=== PATIENT | male | born 1975 | race African-American/Black ===

== ENCOUNTER 2022-09-05 23:27 | Inpatient (IN) | payer OTHER ==
[2022-09-06 00:24] LABS: BASO % 1.8 % (0-2.0); HEMATOCRIT 38.9 % (35.4-49); HEMOGLOBIN 13.6 GM/dL (11.7-16.9); LYMPH % 23.8 % (8-40); MCH 29.8 pg (25.7-33.7); MCHC 34.8 g/dl (32.0-35.9); MEAN CELL VOLUME 85.4 fl (80-96); NEUT % 58.4 % (42.8-82.8); RBC 4.56 M/mm3 (4.00-5.60); RDW 15.3 % (11.9-15.9); WHITE BLOOD COUNT 12.8 K/mm3 (4.0-10.0)
[2022-09-06 01:17] LABS: ALBUMIN 4.3 g/dl (3.4-5.0); BILIRUBIN,TOTAL 2.8 mg/dL (0.2-1); BLOOD UREA NITROGEN 11.2 mg/dL (7-18); CALCIUM 9.5 mg/dL (8.5-10.1); CREATININE 0.7 mg/dL (0.55-1.3); N-TERMINAL BNP 67.1 pg/ml (5-125); POTASSIUM 4.9 mmol/L (3.5-5.1); TOT PROT 9.1 g/dl (6.4-8.2)
[2022-09-06 02:45] LABS: INR 1.22 (0.83-1.09); PROTHROMBIN TIME (PATIENT) 14.1 SEC (9.7-13.0)
[2022-09-06 02:47] LABS: ACTIVATED PTT 32.6 SECONDS (25.2-36.5)
[2022-09-06] MEDS ORDERED: AMOX TR/POT CLAV 875MG/125MG TABLETS (FP) PO ONE (03:04)
[2022-09-06] MEDS ORDERED: PIPERACILLIN/TAZOB 4.5 GM 4.5 GM in DEXTROSE 5%-WATER 100 ML IVPB ONE (03:35)
[2022-09-06] MEDS ORDERED: VANCOMYCIN 1 GM in D5W (PRE-DOCKED) 1,000 MG/250 ML (RESTRICTED TO ID ONLY IVPB ONE (03:35)
[2022-09-06] MEDS ORDERED: VANCOMYCIN/WATER FOR INJ (PEG) 1,000 MG/200 ML BAG IVPB ONE (04:58)
[2022-09-06 05:29] LABS: PLATELET COUNT 482.6 10^3/uL (134-434)
[2022-09-06] MEDS ORDERED: LORazepam 1 MG TABLET PO PRN (05:41)
[2022-09-06] MEDS ORDERED: ACETAMINOPHEN 325 MG TABLET (FP) PO PRN (05:42)
[2022-09-06] MEDS ORDERED: DEXTROSE 5%-NORMAL SALINE 1,000 ML IV SCH (05:45)
[2022-09-06] MEDS ORDERED: PIPERACILLIN/TAZOB 4.5 GM 4.5 GM/100 ML BAG IVPB ONE (06:19)
[2022-09-06 08:19] LABS: BASO % 1.8 % (0-2.0); EOS % 1.7 % (0-4.5); HEMATOCRIT 35.5 % (35.4-49); HEMOGLOBIN 12.8 GM/dL (11.7-16.9); LYMPH % 24.5 % (8-40); MCH 30.3 pg (25.7-33.7); MCHC 36.2 g/dl (32.0-35.9); MEAN CELL VOLUME 83.7 fl (80-96); MEAN PLT VOLUME 7.8 fl (7.5-11.1); PLATELET COUNT 485 10^3/uL (134-434); RBC 4.24 M/mm3 (4.00-5.60); RDW 15.4 % (11.9-15.9); WHITE BLOOD COUNT 8.2 K/mm3 (4.0-10.0)
[2022-09-06 08:37] LABS: POTASSIUM 4.3 mmol/L (3.5-5.1)
[2022-09-06 08:39] LABS: CALCIUM 9.9 mg/dL (8.5-10.1)
[2022-09-06 08:40] LABS: ALBUMIN 3.9 g/dl (3.4-5.0); BLOOD UREA NITROGEN 14.4 mg/dL (7-18); MAGNESIUM 2.1 mg/dL (1.8-2.4)
[2022-09-06 08:42] LABS: PHOSPHOROUS 4.5 mg/dL (2.5-4.9)
[2022-09-06 08:43] LABS: CREATININE 0.8 mg/dL (0.55-1.3)
[2022-09-06 08:44] LABS: BILIRUBIN,TOTAL 2.4 mg/dL (0.2-1); TOT PROT 8.3 g/dl (6.4-8.2)
[2022-09-06] MEDS ORDERED: PIPERACILLIN/TAZOB 4.5 GM 4.5 GM in DEXTROSE 5%-WATER 100 ML IVPB SCH (09:00)
[2022-09-06] MEDS ORDERED: VANCOMYCIN 1 GM in D5W (PRE-DOCKED) 1,000 MG/250 ML (RESTRICTED TO ID ONLY IVPB SCH (10:00)
[2022-09-06] MEDS ORDERED: VANCOMYCIN 1 GM/200 ML PREMIX BAG (RESTRICTED TO ID ONLY) IVPB SCH (10:00)
[2022-09-06] MEDS ORDERED: ENOXAPARIN NA (PORCINE) 40 MG/0.4 ML DISP.SYRIN SQ SCH (10:00)
[2022-09-06] MEDS: NICOTINE 14 MG/24 HOURS TOPICAL PATCH TD SCH ×2 (11:40→11:50)
[2022-09-06] MEDS: THIAMINE HCL 100 MG TABLET (FP) PO SCH (11:40)
[2022-09-06] MEDS: FOLIC ACID 1 MG TABLET (FP) PO SCH (11:40)
[2022-09-06] MEDS ORDERED: ALBUTEROL SO4 HFA INHALER IH PRN (12:28)
[2022-09-06 13:48] LABS: N-TERMINAL BNP 44.9 pg/ml (5-125)
[2022-09-06] MEDS: DOXYCYCLINE HYCLATE 100 MG CAPSULE PO SCH (15:49)
[2022-09-06] MEDS: CEFTRIAXONE 1 GM in DEXTROSE 5%-WATER - 50 ML IVPB SCH (15:51)
[2022-09-06] MEDS: APIXABAN 5 MG TABLET PO SCH ×2 (16:59→22:24)
[2022-09-07] MEDS: NICOTINE 14 MG/24 HOURS TOPICAL PATCH TD SCH (09:30)
[2022-09-07] MEDS: THIAMINE HCL 100 MG TABLET (FP) PO SCH (09:30)
[2022-09-07] MEDS: APIXABAN 5 MG TABLET PO SCH ×2 (09:30→21:18)
[2022-09-07] MEDS: DOXYCYCLINE HYCLATE 100 MG CAPSULE PO SCH (09:30)
[2022-09-07] MEDS: FOLIC ACID 1 MG TABLET (FP) PO SCH (09:30)
[2022-09-07] MEDS: CEFTRIAXONE 1 GM in DEXTROSE 5%-WATER - 50 ML IVPB SCH (09:30)
[2022-09-07 10:33] LABS: POTASSIUM 4.6 mmol/L (3.5-5.1)
[2022-09-07 10:37] LABS: CALCIUM 9.9 mg/dL (8.5-10.1); EOS % 2.2 % (0-4.5); HEMATOCRIT 34.3 % (35.4-49); HEMOGLOBIN 12.4 GM/dL (11.7-16.9); LYMPH % 23.8 % (8-40); MCH 30.5 pg (25.7-33.7); MCHC 36.2 g/dl (32.0-35.9); MEAN CELL VOLUME 84.3 fl (80-96); MONO % 11.6 % (3.8-10.2); NEUT % 61.4 % (42.8-82.8); PLATELET COUNT 484 10^3/uL (134-434); RBC 4.07 M/mm3 (4.00-5.60); RDW 15.3 % (11.9-15.9); WHITE BLOOD COUNT 6.1 K/mm3 (4.0-10.0)
[2022-09-07 10:39] LABS: BLOOD UREA NITROGEN 10.7 mg/dL (7-18)
[2022-09-07 10:41] LABS: CREATININE 0.6 mg/dL (0.55-1.3)
[2022-09-08] MEDS ORDERED: cefTRIAXone SODIUM 1 GM VIAL ONE (08:58)
[2022-09-08] MEDS: FOLIC ACID 1 MG TABLET (FP) PO SCH (09:19)
[2022-09-08] MEDS: APIXABAN 5 MG TABLET PO SCH ×2 (09:19→21:13)
[2022-09-08] MEDS: THIAMINE HCL 100 MG TABLET (FP) PO SCH (09:19)
[2022-09-08] MEDS: CEFTRIAXONE 1 GM in DEXTROSE 5%-WATER - 50 ML IVPB SCH (09:19)
[2022-09-08] MEDS: DOXYCYCLINE HYCLATE 100 MG CAPSULE PO SCH (09:19)
[2022-09-08] MEDS: NICOTINE 14 MG/24 HOURS TOPICAL PATCH TD SCH (09:30)
[2022-09-08 09:56] LABS: HEMATOCRIT 37.9 % (35.4-49); HEMOGLOBIN 13.1 GM/dL (11.7-16.9); MCH 29.5 pg (25.7-33.7); MCHC 34.6 g/dl (32.0-35.9); MEAN CELL VOLUME 85.2 fl (80-96); MEAN PLT VOLUME 8.6 fl (7.5-11.1); PLATELET COUNT 533 10^3/uL (134-434); RBC 4.45 M/mm3 (4.00-5.60); RDW 15.5 % (11.9-15.9)
[2022-09-08 10:23] LABS: POTASSIUM 4.8 mmol/L (3.5-5.1)
[2022-09-08 10:26] LABS: CALCIUM 10.1 mg/dL (8.5-10.1)
[2022-09-08 10:27] LABS: ANISOCYTOSIS 0; BLOOD UREA NITROGEN 14.2 mg/dL (7-18); MACROCYTOSIS 0
[2022-09-08 10:30] LABS: CREATININE 0.7 mg/dL (0.55-1.3); SICKLE CELL SCREEN POSITIVE (NEGATIVE)
[2022-09-08 10:49] VITALS: RESP 18
[2022-09-08 11:19] LABS: EPI CELLS 6 /uL (0-25.1); HYALINE CASTS 0 /uL (0-3.1); PH,URINE 7.5 (5.0-8.0); URINE APPEARANCE CLEAR; URINE BACTERIA 9 /uL (0-1359); URINE BILIRUBIN NEGATIVE (NEGATIVE); URINE COLOR YELLOW; URINE GLUCOSE (UA) NEGATIVE (NEGATIVE); URINE KETONE NEGATIVE (NEGATIVE); URINE LEUK ESTERASE TRACE (NEGATIVE); URINE NITRITE NEGATIVE (NEGATIVE); URINE PROTEIN NEGATIVE (NEGATIVE); URINE RBC 24 /uL (0-23.9); URINE UROBILINOGEN 0.2 mg/dL (0.2-1.0); URINE WBC 79 /uL (0-25.8)
[2022-09-09] MEDS: THIAMINE HCL 100 MG TABLET (FP) PO SCH (09:58)
[2022-09-09] MEDS: FOLIC ACID 1 MG TABLET (FP) PO SCH (09:58)
[2022-09-09] MEDS: APIXABAN 5 MG TABLET PO SCH (09:58)
[2022-09-09] MEDS: CEFTRIAXONE 1 GM in DEXTROSE 5%-WATER - 50 ML IVPB SCH (09:58)
[2022-09-09] MEDS: DOXYCYCLINE HYCLATE 100 MG CAPSULE PO SCH (09:58)
[2022-09-09] MEDS: NICOTINE 14 MG/24 HOURS TOPICAL PATCH TD SCH (10:00)
[2022-09-09 13:15] VITALS: BP 120/76; PULSE 78; TEMP 98.1
[2022-09-09 20:28] VITALS: BMI 19.3
== END 2022-09-09 13:46 | disposition other institution (70) | DRG 134 ==
LOC: JER 23:27 → JERBED 09-06 04:05 → J6S 09-06 07:19
PROVIDERS: ADMIT Internal Medicine; ATTEND Internal Medicine
DX: I26.99 Other pulmonary embolism without acute cor pulmonale (principal); J18.9 Pneumonia, unspecified organism; F32.A Depression, unspecified; D57.3 Sickle-cell trait; F19.10 Other psychoactive substance abuse, uncomplicated; F10.10 Alcohol abuse, uncomplicated; F17.210 Nicotine dependence, cigarettes, uncomplicated; F20.9 Schizophrenia, unspecified; F41.9 Anxiety disorder, unspecified; F12.20 Cannabis dependence, uncomplicated
CPT/HCPCS: 0241U-QW; 36415; 71275-TC; 80048; 80053; 81003; 83021; 83735; 83880; 84100; 84484; 85025; 85379; 85610; 85660; 85730; 93005; 93010; 93306-TC; 93970-TC; 94010; 99285-25; Q9967

== ENCOUNTER 2022-09-09 14:05 | Inpatient (IN) | payer OTHER ==
[2022-09-09 16:23] VITALS: BMI 26.4
[2022-09-09] MEDS ORDERED: hydrOXYzine PAMOATE 25 MG CAPSULE (FP) PO PRN (17:21)
[2022-09-09] MEDS ORDERED: NICOTINE 10 MG CARTRIDGE (INHALER) IH PRN (17:21)
[2022-09-09] MEDS ORDERED: AMMONIUM LACTATE 12% LOTION 225 GM BOTTLE TP PRN (17:21)
[2022-09-09] MEDS ORDERED: IBUPROFEN 400 MG TABLET (FP) PO PRN (17:21)
[2022-09-09] MEDS ORDERED: NALOXONE HCL 0.4 MG/ML VIAL IM PRN (17:21)
[2022-09-09] MEDS ORDERED: COLLOIDAL OATMEAL 1 BAR EACH TP PRN (17:21)
[2022-09-09] MEDS ORDERED: LOPERAMIDE HCL 2 MG CAPSULE PO PRN (17:21)
[2022-09-09] MEDS ORDERED: MAGNESIUM HYDROX 2400MG/30ML ORAL SUSPENSION 30 ML CUP PO PRN (17:21)
[2022-09-09] MEDS ORDERED: MAG HYDROX/AL HYDROX/SIMETH 30 ML UNIT-DOSE CUP PO PRN (17:21)
[2022-09-09] MEDS ORDERED: BENZONATATE 200 MG CAPSULE PO PRN (17:21)
[2022-09-09] MEDS ORDERED: POLYETHYLENE GLYCOL (HEALTHYLAX) 3350 17 GM PACKET PO PRN (17:21)
[2022-09-09] MEDS ORDERED: BENZOCAINE/MENTHOL (CHLORASEPTIC ) LOZENGE MM PRN (17:21)
[2022-09-09] MEDS ORDERED: guaiFENesin 600 MG TABLET.ER (FP) PO PRN (17:21)
[2022-09-09] MEDS ORDERED: IBUPROFEN 600 MG TABLET (FP) PO PRN (17:21)
[2022-09-09] MEDS ORDERED: NALOXONE HCL (KLOXXADO) 8 MG SPRAY NS PRN (17:21)
[2022-09-09] MEDS: THIAMINE HCL 100 MG TABLET (FP) PO SCH (21:07)
[2022-09-09] MEDS: APIXABAN 5 MG TABLET PO SCH (21:07)
[2022-09-09] MEDS: AMOX TR/POT CLAV 875MG/125MG TABLETS (FP) PO SCH (21:07)
[2022-09-09] MEDS ORDERED: MELATONIN 5 MG TABLETS PO SCH (22:00)
[2022-09-10] MEDS: AMOX TR/POT CLAV 875MG/125MG TABLETS (FP) PO SCH ×2 (07:02→17:15)
[2022-09-10] MEDS ORDERED: FOLIC ACID 1 MG TABLET (FP) PO SCH (10:00)
[2022-09-10] MEDS: DOXYCYCLINE HYCLATE 100 MG CAPSULE PO SCH (10:16)
[2022-09-10] MEDS: APIXABAN 5 MG TABLET PO SCH ×2 (10:16→21:33)
[2022-09-10] MEDS: PRENATAL VITAMINS W/ FOLIC ACID TABLET (FP) PO SCH (10:16)
[2022-09-10 11:43] LABS: HEMATOCRIT 35.6 % (35.4-49); HEMOGLOBIN 12.7 GM/dL (11.7-16.9); MCH 30.1 pg (25.7-33.7); MCHC 35.6 g/dl (32.0-35.9); MEAN CELL VOLUME 84.5 fl (80-96); MEAN PLT VOLUME 8.8 fl (7.5-11.1); PLATELET COUNT 511 10^3/uL (134-434); RBC 4.22 M/mm3 (4.00-5.60); RDW 15.7 % (11.9-15.9); WHITE BLOOD COUNT 6.2 K/mm3 (4.0-10.0)
[2022-09-10 11:48] LABS: POTASSIUM 4.2 mmol/L (3.5-5.1)
[2022-09-10 12:14] LABS: SYPHILIS W/ RPR CONF NON-REACTIVE (NONREACTIVE)
[2022-09-10 12:16] LABS: CALCIUM 9.6 mg/dL (8.5-10.1)
[2022-09-10 12:17] LABS: BLOOD UREA NITROGEN 13.3 mg/dL (7-18)
[2022-09-10 12:20] LABS: CREATININE 0.7 mg/dL (0.55-1.3)
[2022-09-10 12:22] LABS: BILIRUBIN,TOTAL 1.6 mg/dL (0.2-1); TOT PROT 8.2 g/dl (6.4-8.2)
[2022-09-10] MEDS: THIAMINE HCL 100 MG TABLET (FP) PO SCH (21:33)
[2022-09-10] MEDS: QUEtiapine FUMARATE 100 MG TABLET (FP) PO SCH (21:34)
[2022-09-11] MEDS: AMOX TR/POT CLAV 875MG/125MG TABLETS (FP) PO SCH ×2 (07:04→16:58)
[2022-09-11] MEDS: PRENATAL VITAMINS W/ FOLIC ACID TABLET (FP) PO SCH (09:45)
[2022-09-11] MEDS: DOXYCYCLINE HYCLATE 100 MG CAPSULE PO SCH (09:45)
[2022-09-11] MEDS: APIXABAN 5 MG TABLET PO SCH ×2 (09:45→21:08)
[2022-09-11 11:15] LABS: EPI CELLS 23 /uL (0-25.1); HYALINE CASTS 1 /uL (0-3.1); PH,URINE 6.5 (5.0-8.0); URINE APPEARANCE CLEAR; URINE BACTERIA 11 /uL (0-1359); URINE BILIRUBIN NEGATIVE (NEGATIVE); URINE COLOR YELLOW; URINE GLUCOSE (UA) NEGATIVE (NEGATIVE); URINE KETONE NEGATIVE (NEGATIVE); URINE LEUK ESTERASE 2+ (NEGATIVE); URINE NITRITE NEGATIVE (NEGATIVE); URINE PROTEIN NEGATIVE (NEGATIVE); URINE RBC 19 /uL (0-23.9); URINE UROBILINOGEN 0.2 mg/dL (0.2-1.0); URINE WBC 278 /uL (0-25.8)
[2022-09-11] MEDS: THIAMINE HCL 100 MG TABLET (FP) PO SCH (21:08)
[2022-09-11] MEDS: QUEtiapine FUMARATE 100 MG TABLET (FP) PO SCH (21:08)
[2022-09-12] MEDS: AMOX TR/POT CLAV 875MG/125MG TABLETS (FP) PO SCH ×2 (07:05→17:02)
[2022-09-12] MEDS: DOXYCYCLINE HYCLATE 100 MG CAPSULE PO SCH (10:33)
[2022-09-12] MEDS: PRENATAL VITAMINS W/ FOLIC ACID TABLET (FP) PO SCH (10:33)
[2022-09-12] MEDS: APIXABAN 5 MG TABLET PO SCH ×2 (10:33→21:33)
[2022-09-12] MEDS: hydrOXYzine PAMOATE 50 MG CAPSULE (FP) PO PRN (10:34)
[2022-09-12] MEDS: QUEtiapine FUMARATE 100 MG TABLET (FP) PO SCH (21:33)
[2022-09-12] MEDS: THIAMINE HCL 100 MG TABLET (FP) PO SCH (21:33)
[2022-09-13] MEDS: AMOX TR/POT CLAV 875MG/125MG TABLETS (FP) PO SCH ×2 (07:01→17:06)
[2022-09-13] MEDS: APIXABAN 5 MG TABLET PO SCH ×2 (09:52→21:02)
[2022-09-13] MEDS: PRENATAL VITAMINS W/ FOLIC ACID TABLET (FP) PO SCH (09:52)
[2022-09-13] MEDS: DOXYCYCLINE HYCLATE 100 MG CAPSULE PO SCH (09:52)
[2022-09-13] MEDS: hydrOXYzine PAMOATE 50 MG CAPSULE (FP) PO PRN (09:54)
[2022-09-13] MEDS: QUEtiapine FUMARATE 100 MG TABLET (FP) PO SCH (21:02)
[2022-09-13] MEDS: THIAMINE HCL 100 MG TABLET (FP) PO SCH (21:02)
[2022-09-14] MEDS: hydrOXYzine PAMOATE 50 MG CAPSULE (FP) PO PRN (06:08)
[2022-09-14] MEDS: AMOX TR/POT CLAV 875MG/125MG TABLETS (FP) PO SCH ×2 (07:04→17:55)
[2022-09-14] MEDS: PRENATAL VITAMINS W/ FOLIC ACID TABLET (FP) PO SCH (09:32)
[2022-09-14] MEDS: DOXYCYCLINE HYCLATE 100 MG CAPSULE PO SCH (09:32)
[2022-09-14] MEDS: APIXABAN 5 MG TABLET PO SCH ×2 (09:32→21:43)
[2022-09-14] MEDS: QUEtiapine FUMARATE 100 MG TABLET (FP) PO SCH (21:42)
[2022-09-14] MEDS: THIAMINE HCL 100 MG TABLET (FP) PO SCH (21:43)
[2022-09-15] MEDS: hydrOXYzine PAMOATE 50 MG CAPSULE (FP) PO PRN (06:17)
[2022-09-15] MEDS: PRENATAL VITAMINS W/ FOLIC ACID TABLET (FP) PO SCH (10:08)
[2022-09-15] MEDS: APIXABAN 5 MG TABLET PO SCH ×2 (10:09→21:24)
[2022-09-15] MEDS: THIAMINE HCL 100 MG TABLET (FP) PO SCH (21:23)
[2022-09-15] MEDS: QUEtiapine FUMARATE 100 MG TABLET (FP) PO SCH (21:24)
[2022-09-16] MEDS: hydrOXYzine PAMOATE 50 MG CAPSULE (FP) PO PRN (06:01)
[2022-09-16] MEDS: APIXABAN 5 MG TABLET PO SCH ×2 (09:43→21:06)
[2022-09-16] MEDS: PRENATAL VITAMINS W/ FOLIC ACID TABLET (FP) PO SCH (09:43)
[2022-09-16] MEDS: ACETAMINOPHEN 325 MG TABLET (FP) PO PRN ×2 (15:10→21:06)
[2022-09-16] MEDS: LIDOCAINE 5% TOPICAL PATCH TP SCH (16:44)
[2022-09-16] MEDS: THIAMINE HCL 100 MG TABLET (FP) PO SCH (21:05)
[2022-09-16] MEDS: QUEtiapine FUMARATE 100 MG TABLET (FP) PO SCH (21:05)
[2022-09-16] MEDS: LIDOCAINE PATCH REMOVAL MC SCH (21:07)
[2022-09-17] MEDS: ACETAMINOPHEN 325 MG TABLET (FP) PO PRN ×2 (05:54→18:24)
[2022-09-17] MEDS: hydrOXYzine PAMOATE 50 MG CAPSULE (FP) PO PRN (05:54)
[2022-09-17] MEDS: APIXABAN 5 MG TABLET PO SCH ×2 (11:06→21:19)
[2022-09-17] MEDS: LIDOCAINE 5% TOPICAL PATCH TP SCH (11:06)
[2022-09-17] MEDS: PRENATAL VITAMINS W/ FOLIC ACID TABLET (FP) PO SCH (11:06)
[2022-09-17] MEDS: QUEtiapine FUMARATE 100 MG TABLET (FP) PO SCH (21:19)
[2022-09-17] MEDS: THIAMINE HCL 100 MG TABLET (FP) PO SCH (21:19)
[2022-09-17] MEDS: LIDOCAINE PATCH REMOVAL MC SCH (21:25)
[2022-09-18] MEDS: hydrOXYzine PAMOATE 50 MG CAPSULE (FP) PO PRN (05:55)
[2022-09-18] MEDS: ACETAMINOPHEN 325 MG TABLET (FP) PO PRN ×3 (05:56→21:24)
[2022-09-18] MEDS: APIXABAN 5 MG TABLET PO SCH ×2 (09:38→21:23)
[2022-09-18] MEDS: PRENATAL VITAMINS W/ FOLIC ACID TABLET (FP) PO SCH (09:38)
[2022-09-18] MEDS: LIDOCAINE 5% TOPICAL PATCH TP SCH (09:39)
[2022-09-18] MEDS: THIAMINE HCL 100 MG TABLET (FP) PO SCH (21:23)
[2022-09-18] MEDS: QUEtiapine FUMARATE 100 MG TABLET (FP) PO SCH (21:23)
[2022-09-18] MEDS: LIDOCAINE PATCH REMOVAL MC SCH (21:24)
[2022-09-19] MEDS: ACETAMINOPHEN 325 MG TABLET (FP) PO PRN (06:34)
[2022-09-19] MEDS: PRENATAL VITAMINS W/ FOLIC ACID TABLET (FP) PO SCH (10:43)
[2022-09-19] MEDS: LIDOCAINE 5% TOPICAL PATCH TP SCH (10:43)
[2022-09-19] MEDS: APIXABAN 5 MG TABLET PO SCH ×2 (10:43→21:26)
[2022-09-19] MEDS: THIAMINE HCL 100 MG TABLET (FP) PO SCH (21:25)
[2022-09-19] MEDS: LIDOCAINE PATCH REMOVAL MC SCH (21:26)
[2022-09-19] MEDS: QUEtiapine FUMARATE 100 MG TABLET (FP) PO SCH (21:26)
[2022-09-20] MEDS: hydrOXYzine PAMOATE 50 MG CAPSULE (FP) PO PRN (06:02)
[2022-09-20] MEDS: PRENATAL VITAMINS W/ FOLIC ACID TABLET (FP) PO SCH (09:35)
[2022-09-20] MEDS: LIDOCAINE 5% TOPICAL PATCH TP SCH (09:35)
[2022-09-20] MEDS: APIXABAN 5 MG TABLET PO SCH ×2 (09:35→21:39)
[2022-09-20] MEDS: THIAMINE HCL 100 MG TABLET (FP) PO SCH (21:39)
[2022-09-20] MEDS: QUEtiapine FUMARATE 100 MG TABLET (FP) PO SCH (21:39)
[2022-09-20] MEDS: LIDOCAINE PATCH REMOVAL MC SCH (21:40)
[2022-09-21] MEDS: hydrOXYzine PAMOATE 50 MG CAPSULE (FP) PO PRN (06:21)
[2022-09-21] MEDS: PRENATAL VITAMINS W/ FOLIC ACID TABLET (FP) PO SCH (09:28)
[2022-09-21] MEDS: LIDOCAINE 5% TOPICAL PATCH TP SCH (09:29)
[2022-09-21] MEDS: APIXABAN 5 MG TABLET PO SCH ×2 (09:29→21:07)
[2022-09-21] MEDS: LIDOCAINE PATCH REMOVAL MC SCH (21:07)
[2022-09-21] MEDS: QUEtiapine FUMARATE 100 MG TABLET (FP) PO SCH (21:07)
[2022-09-21] MEDS: THIAMINE HCL 100 MG TABLET (FP) PO SCH (21:07)
[2022-09-22] MEDS: hydrOXYzine PAMOATE 50 MG CAPSULE (FP) PO PRN (05:51)
[2022-09-22] MEDS: LIDOCAINE 5% TOPICAL PATCH TP SCH (09:59)
[2022-09-22] MEDS: APIXABAN 5 MG TABLET PO SCH ×2 (09:59→21:12)
[2022-09-22] MEDS: PRENATAL VITAMINS W/ FOLIC ACID TABLET (FP) PO SCH (09:59)
[2022-09-22] MEDS ORDERED: QUEtiapine FUMARATE 50 MG TABLET ONE (19:03)
[2022-09-22] MEDS: LIDOCAINE PATCH REMOVAL MC SCH (21:12)
[2022-09-22] MEDS: QUEtiapine FUMARATE 100 MG TABLET (FP) PO SCH (21:12)
[2022-09-22] MEDS: THIAMINE HCL 100 MG TABLET (FP) PO SCH (21:12)
[2022-09-23] MEDS: PRENATAL VITAMINS W/ FOLIC ACID TABLET (FP) PO SCH (09:37)
[2022-09-23] MEDS: APIXABAN 5 MG TABLET PO SCH ×2 (09:37→21:17)
[2022-09-23] MEDS: LIDOCAINE 5% TOPICAL PATCH TP SCH (09:37)
[2022-09-23] MEDS: hydrOXYzine PAMOATE 50 MG CAPSULE (FP) PO PRN (09:38)
[2022-09-23] MEDS: THIAMINE HCL 100 MG TABLET (FP) PO SCH (21:17)
[2022-09-23] MEDS: QUEtiapine FUMARATE 100 MG TABLET (FP) PO SCH (21:17)
[2022-09-23] MEDS: LIDOCAINE PATCH REMOVAL MC SCH (21:18)
[2022-09-24 08:49] VITALS: RESP 18
[2022-09-24] MEDS: APIXABAN 5 MG TABLET PO SCH ×2 (10:15→21:50)
[2022-09-24] MEDS: LIDOCAINE 5% TOPICAL PATCH TP SCH (10:15)
[2022-09-24] MEDS: PRENATAL VITAMINS W/ FOLIC ACID TABLET (FP) PO SCH (10:15)
[2022-09-24] MEDS: hydrOXYzine PAMOATE 50 MG CAPSULE (FP) PO PRN (10:15)
[2022-09-24] MEDS: QUEtiapine FUMARATE 100 MG TABLET (FP) PO SCH (21:50)
[2022-09-24] MEDS: THIAMINE HCL 100 MG TABLET (FP) PO SCH (21:51)
[2022-09-24] MEDS: LIDOCAINE PATCH REMOVAL MC SCH (21:51)
[2022-09-25] MEDS: hydrOXYzine PAMOATE 50 MG CAPSULE (FP) PO PRN (06:11)
[2022-09-25] MEDS: APIXABAN 5 MG TABLET PO SCH ×2 (09:41→21:06)
[2022-09-25] MEDS: PRENATAL VITAMINS W/ FOLIC ACID TABLET (FP) PO SCH (09:41)
[2022-09-25] MEDS: LIDOCAINE 5% TOPICAL PATCH TP SCH (09:41)
[2022-09-25] MEDS: THIAMINE HCL 100 MG TABLET (FP) PO SCH (21:06)
[2022-09-25] MEDS: QUEtiapine FUMARATE 100 MG TABLET (FP) PO SCH (21:06)
[2022-09-25] MEDS: LIDOCAINE PATCH REMOVAL MC SCH (21:07)
[2022-09-26 06:43] VITALS: TEMP 98.4
[2022-09-26 09:03] VITALS: BP 114/75; PULSE 103
[2022-09-26] MEDS: APIXABAN 5 MG TABLET PO SCH (09:37)
[2022-09-26] MEDS: PRENATAL VITAMINS W/ FOLIC ACID TABLET (FP) PO SCH (09:38)
[2022-09-26] MEDS: LIDOCAINE 5% TOPICAL PATCH TP SCH (09:38)
== END 2022-09-26 11:19 | disposition home or self-care (01) | DRG 772 ==
LOC: YASAS 14:05 → Y5N 18:24 → Y3W 18:34
PROVIDERS: ADMIT Allergy & Immunology; ATTEND Psychiatry & Neurology Pain Medicine
PROC: HZ42ZZZ Group Counseling for Substance Abuse Treatment, Cognitive-Behavioral (ICD-10-PCS; principal; 2022-09-09)
DX: F10.20 Alcohol dependence, uncomplicated (principal); F14.20 Cocaine dependence, uncomplicated; F12.20 Cannabis dependence, uncomplicated; F17.210 Nicotine dependence, cigarettes, uncomplicated; F20.9 Schizophrenia, unspecified; F19.282 Other psychoactive substance dependence with psychoactive substance-induced sleep disorder; F19.24 Other psychoactive substance dependence with psychoactive substance-induced mood disorder; F41.9 Anxiety disorder, unspecified; F32.A Depression, unspecified; D57.1 Sickle-cell disease without crisis; Z87.01 Personal history of pneumonia (recurrent); Z86.711 Personal history of pulmonary embolism; Z79.01 Long term (current) use of anticoagulants
CPT/HCPCS: 36415; 80053; 81003; 85027; 86780; 86803; C9803-CS; U0003; U0005